=== PATIENT | female | born 1970 | race Hispanic/Latino ===

== ENCOUNTER → 2016-10-28 | Outpatient (CLI) | payer OTHER ==
--- NOTE | 2016-10-30 15:47 | REPMRS ---
Patient History The patient states she has not had a clinical breast exam in over a year. Patient is nulliparous. Family history of colorectal cancer in paternal grandmother at age 60, colorectal cancer in paternal uncle at age 40, and pancreatic cancer in maternal uncle at age 60. Taking unspecified hormones for 8 years. Digital Mammo Screening Bilat: October 28, 2016 - Exam #: [id number] Bilateral CC and MLO view(s) were taken. Technologist: Geeta Ayala, Technologist Prior study comparison: December 29, 2013, diagnostic bilateral mammo, performed at [facility]. FINDINGS: The breast tissue is heterogeneously dense. This may lower the sensitivity of mammography. There is a moderate amount of heterogeneously dense fibroglandular tissue which is fairly symmetric. There is no interval development of dominant mass, architectural distortion, or clustered microcalcification typical of malignancy. There has been no change in the appearance of the mammogram from the prior studies. ASSESSMENT: BI-RADS/ACR category 1 mammogram. Negative. Recommendation Routine screening mammogram of both breasts in 1 year (for women over age 40). This mammogram was interpreted with the aid of an FDA-approved computer-aided dectection system. Electronically Signed By: Jamie Mishra MD 10/30/16 [id number]
== END ==
LOC: M RAD 08:57
PROVIDERS: ATTEND Internal Medicine
DX: Z12.31 Encounter for screening mammogram for malignant neoplasm of breast (principal)

== ENCOUNTER 2017-02-02 01:56 | Emergency (ER) | payer OTHER, MEDICARE ==
[~2017-02-02] VITALS: Ht 172.7 cm; Wt 77.3 kg
[2017-02-02 01:57] VITALS: BP 128/82
[2017-02-02] MEDS ORDERED: IMIT6INJ SC (02:07)
[2017-02-02] MEDS ORDERED: ZOLO100T PO (02:07)
[2017-02-02] MEDS ORDERED: ARMO1TAB PO (02:07)
[2017-02-02] MEDS ORDERED: VALA1TAB2 PO (02:07)
[2017-02-02] MEDS ORDERED: TOPA100T12 PO (02:07)
[2017-02-02] MEDS ORDERED: BENA25CA4 PO (02:35)
[2017-02-02] MEDS ORDERED: diphenhydrAMINE INJ 50MG/ML VIAL (J1200) IM ONE (02:45)
== END 2017-02-02 02:47 | disposition home or self-care (01) ==
LOC: M ED 01:56
DX: R21 Rash and other nonspecific skin eruption (principal); T37.5X5A Adverse effect of antiviral drugs, initial encounter; Y92.9 Unspecified place or not applicable; Y93.9 Activity, unspecified; B02.9 Zoster without complications; F32.9 Major depressive disorder, single episode, unspecified; E03.9 Hypothyroidism, unspecified; Z79.899 Other long term (current) drug therapy; Z91.040 Latex allergy status; Z88.5 Allergy status to narcotic agent
CPT/HCPCS: 96372; 99282; J1200